=== PATIENT | female | born 1970 | race Caucasian/White ===

== ENCOUNTER → 2023-10-14 15:46 | Outpatient (REF) | payer OTHER, SELFPAY | LOC: WDC 15:46 | PROVIDERS: ATTENDING PHYSICIAN Obstetrics & Gynecology | DX: Z12.31 Encounter for screening mammogram for malignant neoplasm of breast (principal) | CPT/HCPCS: 77063; 77067 ==

== ENCOUNTER → 2024-10-14 15:30 | Outpatient (REF) | payer BC, SELFPAY | LOC: WDC 15:30 | PROVIDERS: ATTENDING PHYSICIAN Obstetrics & Gynecology; FAMILY PHYSICIAN Family Medicine | DX: Z12.31 Encounter for screening mammogram for malignant neoplasm of breast (principal) | CPT/HCPCS: 77063; 77067 ==